=== PATIENT | female | born 1955 | race Two or more races ===

== ENCOUNTER 2022-10-22 12:00 | Emergency (ER) | payer OTHER, MEDICAID ==
[~2022-10-22] VITALS: Ht 160 cm; Wt 72.0 kg
[2022-10-22 13:17] VITALS: BP 128/62
[2022-10-22] MEDS ORDERED: methylPREDNISolone SOD SUCC 125 MG/2 ML VL IM ONE (14:00)
[2022-10-22 15:56] LABS: Urine Bacteria FEW /hpf (None Seen); Urine Blood TRACE /uL (Negative); Urine Hyaline Cast FEW /lpf (0 - 2); Urine Mucus FEW (None Seen); Urine Specific Gravity 1.028 (1.001-1.035); Urine WBC 5 /hpf (0 - 5)
[2022-10-22] MEDS ORDERED: METH4PAK PO (16:29)
[2022-10-22] MEDS ORDERED: AZIT1POW PO (16:29)
== END 2022-10-22 18:42 | disposition home or self-care (01) ==
LOC: ER 12:00
DX: U07.1 COVID-19 (principal); J10.1 Influenza due to other identified influenza virus with other respiratory manifestations
CPT/HCPCS: 36415; 71046; 81001; 87426; 87804; 96372; 99284; J2930